=== PATIENT | female | born 1990 ===

== ENCOUNTER → 2022-11-03 | Outpatient (CLI) | payer BC ==
[2022-11-06 15:09] LABS: HPV 16 Negative (Negative); HPV 18 Negative (Negative); HPV OTHER HR TYPES Negative (Negative)
== END | disposition home or self-care (01) ==
LOC: LAB SHORT 17:05 → LAB 17:05
PROVIDERS: Advanced Practice Midwife
DX: Z01.419 Encounter for gynecological examination (general) (routine) without abnormal findings (principal)
CPT/HCPCS: 87624; G0145